=== PATIENT | female | born 1980 | race Caucasian/White ===

== ENCOUNTER 2022-07-05 14:28 | Emergency (ER) | payer OTHER ==
[~2022-07-05] VITALS: Ht 167.6 cm; Wt 62.1 kg
[2022-07-05 14:33] VITALS: BP 132/84
--- NOTE | 2022-07-05 15:04 | NUR ---
C/O LEFT FOOT PAIN X 1 DAY, S/P TWISTING FOOT AFTER "LANDING WRONG" WHEN JUMPING DOWN THE BED, NOTED SWELLING ON THE FOOT, APPLICATION SUPPORT MANAGER LESS THAN 3 SECONDS NKA PMH: DENIES
--- NOTE | 2022-07-05 16:25 | NUR ---
SHORT LEG POSTERIOR APPLIED WITH BRENDA WRAP X 2. + CMS
--- NOTE | 2022-07-05 16:30 | NUR ---
Patient discharged with v/s stable. Written and verbal after care instructions given and explained. Patient verbalized understanding. Wheel Chair Assisted with to car. All questions addressed prior to discharge. Advised to follow up with PMD.
--- NOTE | 2022-07-05 16:36 | NUR ---
Damari dunn in [facility] - 07/05/22 at 1637 by NELLIE SHORT LEG POSTERIOR APPLIED WITH BRENDA WRAP X 2. + CMS
== END 2022-07-05 16:30 | disposition home or self-care (01) ==
LOC: MED 14:28
DX: S92.355A Nondisplaced fracture of fifth metatarsal bone, left foot, initial encounter for closed fracture (principal); W13.8XXA Fall from, out of or through other building or structure, initial encounter; Y93.89 Activity, other specified; Y92.89 Other specified places as the place of occurrence of the external cause; Y99.8 Other external cause status
CPT/HCPCS: 29515; 73630; 99283